=== PATIENT | male | born 1985 | race Caucasian/White ===

== ENCOUNTER 2024-05-26 20:21 | Emergency (ER) | payer BC, SELFPAY ==
[2024-05-26 20:27] VITALS: BP 132/81; PULSE 61; TEMP 36.8; O2SAT 99; BMI 23.7
--- NOTE | 2024-05-26 21:02 | XR_ITS ---
The [address] [address] Patient Name: JOCELYN JIMENEZ MRN: [id number] date: 1985 Sex: M Assigned Patient Location: ER Current Patient Location: ER Accession/Order Number: [id number] Exam Date: 05/26/2024 21:07 Report Date: 05/26/2024 22:09 At the request of: SUZI BROWN Procedure: XR knee RT 3V XR knee RT 3V, 05/26/2024 8:07 PM CDT: History: pain, injury. . Comparison: None. Technique: 3 views right knee Findings/Impression: There is no acute fracture or malalignment. There is suprapatellar soft tissue swelling. There is no knee joint effusion. There is mild degenerative change of the medial and patellofemoral compartments. Electronically authenticated by: JOSE MORA Date: 05/26/2024 22:09
[2024-05-26] MEDS: KETOROLAC TROMETHAMINE 30 MG/ML VIAL IM (21:16)
[2024-05-26 21:54] VITALS: BP 117/64; PULSE 60; O2SAT 98
--- NOTE | 2024-05-26 22:18 | ED_ITS ---
HPI HPI - General Adult General Chief complaint: Urogenital-Male Stated complaint: GROIN PAIN Time Seen by Provider: 05/26/24 20:26 Source: patient Mode of arrival: walk-in Limitations: no limitations History of Present Illness HPI narrative: 38-year-old male to the emergency department with chief complaint of scrotal pain and knee pain. Knee Pain: Patient reports that 1 week ago he was moving some things around the garage planted and twisted on his knee. He has had medial discomfort ever since. He denies any instability. He is able to ambulate. He works on [employer] and is able to complete his job however it is painful to do so at the end of the day. Hurts worse after movement. No therapies attempted. Scrotal pain: Patient reports over the last few years he has had intermittent scrotal discomfort. Pressure and fullness. Comes and goes. It has been happening more frequently. 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 That he was told that this could cause his genital discomfort. He has had several ultrasounds of his testicles at other hospitals. He has had lab work and urinalysis performed. None of these have explain his symptoms. He has not followed up with urology. He had did have a vasectomy several years ago in [place]. Patient came to the emergency department today because he is finally settled in the area and he has insurance. He would like to get on the path to figure out what is going on with his scrotal pain. Related Data Previous Rx's ?Medication ?Instructions ?Recorded naproxen 500 mg tablet 500 mg PO BID PRN pain #14 tabs 05/26/24 Allergies Allergy/AdvReac Type Severity Reaction Status Date / Time Penicillins Allergy Unknown Unknown Verified 05/26/24 20:27 Opioid HPI Opioid Management Most Recent Opioid Data: Last Pain Scale 4 05/26/24 21:53 Last ED Pain Assessment 05/26/24 21:53 Review of Systems ROS Status of ROS 10 or more systems reviewed and unremark able except as noted in history and below Exam Narrative Exam Narrative: VITALS: I have reviewed the triage vital signs. GENERAL: Well developed, well appearing adult in no acute distress. NEURO: Alert and oriented. Moves all extremities. Face is symmetric and expressive. EYES: PERRL. No scleral icterus or conjunctival injection. No discharge. HENT: Normocephalic, atraumatic. Hearing is grossly intact. Nares grossly patent and without discharge. Mucous membranes moist. NECK: No JVD. Patient moves neck without restriction. CARDIO: Rhythm regular. Normal rate. No murmur, rub, or gallop. Pulses equal bilaterally in the upper and lower extremity. No lower extremity edema. PULM: Lungs clear to auscultation in all acevedo. No wheezes, rales, or rhonchi. No conversational dyspnea. No splinting, stridor, or accessory muscle use. GI/: Abdomen is soft and non-tender. Normoactive bowel sounds. Nurse Dulce as. Normal external male genitalia. Normal testicular lie. No testicular tenderness. Normal testicular size no erythema crepitus warmth or swelling appreciated in the groin. No epididymal tenderness. No hernias appreciated EXTREMITIES: Symmetric muscle bulk. No joint swelling. No clubbing, cyanosis, or deformity. SKIN: Warm and dry. Normal turgor. No rash or lesions appreciated. PSYCH: Mood, affect, and interaction is appropriate to the setting. Constitutional Vital Signs, click to edit/add: Last Vital Signs Temp 98.2 F 05/26/24 20:27 Pulse 60 05/26/24 21:54 Resp 16 05/26/24 21:54 BP 117/64 05/26/24 21:54 Pulse Ox 98 05/26/24 21:54 O2 Del Method Room Air 05/26/24 21:54 Course Vital Signs Vital signs: Vital Signs Temperature 98.2 F 05/26/24 20:27 Pulse Rate 61 05/26/24 20:27 Respiratory Rate 18 05/26/24 20:27 Blood Pressure 132/81 05/26/24 20:27 Pulse Oximetry 99 05/26/24 20:27 Oxygen Delivery Method Room Air 05/26/24 20:27 Temperature 98.2 F 05/26/24 20:27 Pulse Rate 60 05/26/24 21:54 Respiratory Rate 16 05/26/24 21:54 Blood Pressure 117/64 05/26/24 21:54 Pulse Oximetry 98 05/26/24 21:54 Oxygen Delivery Method Room Air 05/26/24 21:54 Medical Decision Making MDM Narrative Medical decision making narrative: Appearing 38-year-old male to the emergency department chief complaint of knee pain and chronic testicular pain. Knee pain will be evaluated with a x-ray. We discussed the history, previous diagnostic workup of his testicular pain. He was examined today. There does not appear to be any acute component to this. Discussed that repeating testing already performed will likely yield the same results. He will be given a urology referral for this. Patient agrees with this plan and is thankful. x-ray of the knee is without acute findings. Trial of naproxen. Supportive underwear. Follow-up with urology for testicular pain. Will follow-up with orthopedics for his knee. Return precautions were discussed. All questions were answered. The patient was discharged home. Medical Records Medical records reviewed: Yes I reviewed the patient's medical records Imaging Data Knee x-ray: Attestation: I personally reviewed and interpreted this imaging study as follows: My impression: No acute fracture or dislocation Discharge Plan Discharge Stand Alone Forms: Work/School Release, Portal Instructions Chief Complaint: Urogenital-Male Clinical Impression: Chronic pain in testicle, Acute knee pain Patient Disposition: Home, Self-Care Time of Disposition Decision: 22:13 Condition: Good Mode of Transportation: Private Vehicle Prescriptions / Home Meds: New naproxen 500 mg tablet 500 mg PO BID PRN (Reason: pain) Qty: 14 0RF Print Language: Libyan Instructions: Knee Pain (ED), P.R.I.C.E. Treatment (ED), Scrotal Pain (ED) Additional Instructions: Call the office of your primary care doctor to arrange for follow-up within the above-stated timeframe. Your ED visit was focused on your acute issue and does not replace primary care. You should review your labs, imaging, and diagnoses from this ED visit with your primary care physician. There may be non-emergent/ incidental findings that need further evaluation. You should review your vital signs including blood pressure with your PCP. If you were prescribed medications you should discuss possible side-effects and drug interactions with your pharmacist. Call 911 or go to the nearest Emergency Department if you develop any new or worsening symptoms. Seek immediate medical attention if you develop: worsening abdominal pain, new or worsening nausea, new or worsening vomiting, new or worsening diarrhea, chest pain, shortness of breath, pain with urination, problems u rinating, fever, chills, weakness, or any new or worsening symptoms. Referrals: Ally Santiago MD [Physician] - 1 week (Follow-up to discuss testicle pain ) Danish Melton MD [Physician] - 1 week (Follow-up to discuss the knee )
== END 2024-05-26 22:21 | disposition home or self-care (01) ==
PROVIDERS: Emergency Provider Student in an Organized Health Care Education/Training Program
DX: N50.819 Testicular pain, unspecified (principal); M25.561 Pain in right knee; G89.29 Other chronic pain
CPT/HCPCS: 73562; 96372; 99284; J1885